=== PATIENT | male | born 1985 | race Caucasian/White ===

== ENCOUNTER 2018-03-17 06:55 | Emergency (ER) | payer BC ==
[~2018-03-17] VITALS: Ht 175.3 cm; Wt 67.4 kg
[~2018-03-17 06:55] MED LIST: ASPI1TAB2 PO
[2018-03-17 06:57] VITALS: TEMP 36.7; Ht 175.3 cm; Wt 67.4 kg
[2018-03-17] MEDS ORDERED: BUPR8SUB19 SL (07:06)
[2018-03-17] MEDS ORDERED: SODIUM CHLORIDE 0.9% 1000ML 1,000 ML IV STA (07:22)
[2018-03-17] MEDS ORDERED: ONDANSETRON INJ 2 MG/ML 2 ML VIAL IV STA (07:22)
[2018-03-17 07:53] LABS: BASO % 0.3 %; BASO ABS # 0.02 K/uL (0-0.2); EOS % 3.3 %; EOS ABS # 0.21 K/uL (0-0.5); HEMATOCRIT 41.5 % (42-52); HEMOGLOBIN 14.9 g/dL (14.0-18.0); IG# 0.01 K/uL (0.00-0.02); LYMPH ABS # 1.38 K/uL (1.2-3.4); MEAN CELL VOLUME 89.1 fL (80-100); MEAN CORPUSCULAR HGB CONC 35.9 g/dl (32-36); MEAN PLATELET VOLUME 9.5 fL (7.4-10.4); MONO % 14.5 %; MONO ABS # 0.91 K/uL (0.11-0.59); NEUT % 59.7 %; NEUT ABS # 3.74 K/uL (1.4-6.5); PLATELET COUNT 172 K/uL (130-400); RED CELL DISTRIBUTION WIDTH CV 12.7 % (11.5-14.5); RED CELL DISTRIBUTION WIDTH SD 40.8 fL (36.4-46.3); WHITE BLOOD COUNT 6.27 K/uL (4.8-10.8)
[2018-03-17 08:09] LABS: CALCIUM 8.7 mg/dl (8.5-10.1); POTASSIUM 3.7 mmol/L (3.5-5.1)
[2018-03-17] MEDS ORDERED: ONDA4TAB10 SL (09:04)
[2018-03-17 09:10] VITALS: BP 126/65; PULSE 71; O2SAT 97
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
== END 2018-03-17 09:11 | disposition home or self-care (01) ==
LOC: C.EDB 06:57 → C.EDA 09:11
DX: R11.2 Nausea with vomiting, unspecified (principal); R19.7 Diarrhea, unspecified; R51 Headache; Z88.0 Allergy status to penicillin; F17.200 Nicotine dependence, unspecified, uncomplicated